=== PATIENT | male | born 1985 | race Caucasian/White ===

== ENCOUNTER 2016-12-13 22:30 | Emergency (ER) | payer SELFPAY ==
[~2016-12-13] VITALS: Ht 170.2 cm; Wt 59.0 kg
[2016-12-13 22:49] VITALS: BP 139/91
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
== END 2016-12-13 22:56 | disposition left against medical advice (07) ==
LOC: ER 22:30 → EEVIPCON 22:30 → ER 22:56
DX: S09.90XA Unspecified injury of head, initial encounter (principal); Y04.0XXA Assault by unarmed brawl or fight, initial encounter; Y93.89 Activity, other specified; Y92.512 Supermarket, store or market as the place of occurrence of the external cause; Y99.8 Other external cause status
CPT/HCPCS: 99284